=== PATIENT | female | born 1965 | race Two or more races ===

== ENCOUNTER 2017-03-31 12:54 | Outpatient (CLI) | payer OTHER | END 2017-03-31 13:05 | disposition home or self-care (01) | LOC: SONOGRAMA 12:54 → MAMO-SONO 13:15 | DX: R31.9 Hematuria, unspecified (principal) ==

== ENCOUNTER 2017-04-06 11:15 | Outpatient (CLI) | payer OTHER | END 2017-04-06 12:00 | disposition home or self-care (01) | LOC: NUCLEAR 11:15 | DX: M81.0 Age-related osteoporosis without current pathological fracture (principal) ==

== ENCOUNTER → 2017-04-29 | Outpatient (CLI) | payer OTHER | END | disposition home or self-care (01) | LOC: NUCLEAR 04-22 07:00 | DX: R07.89 Other chest pain (principal) | CPT/HCPCS: 78452; 93017; A9500 ==

== ENCOUNTER 2020-04-29 07:45 | Outpatient (CLI) | payer OTHER | END 2020-04-29 07:50 | disposition home or self-care (01) | LOC: SONOGRAMA 07:45 → MAMO-SONO 05-01 09:00 | PROVIDERS: ATTEND Obstetrics & Gynecology Gynecologic Oncology | DX: Q51.818 Other congenital malformations of uterus (principal); N95.1 Menopausal and female climacteric states ==

== ENCOUNTER 2021-12-15 08:41 | Outpatient (CLI) | payer OTHER | END 2021-12-15 08:43 | disposition home or self-care (01) | LOC: SONOGRAMA 08:41 | PROVIDERS: ATTEND Obstetrics & Gynecology Gynecologic Oncology | DX: N95.1 Menopausal and female climacteric states (principal) ==

== ENCOUNTER 2022-12-03 14:14 | Outpatient (CLI) | payer OTHER | END 2022-12-03 14:24 | disposition home or self-care (01) | LOC: SONOGRAMA 14:14 | PROVIDERS: ATTEND Obstetrics & Gynecology Gynecologic Oncology | DX: N83.291 Other ovarian cyst, right side (principal) ==

== ENCOUNTER 2022-12-17 13:50 | Outpatient (CLI) | payer OTHER | END 2022-12-17 13:51 | disposition home or self-care (01) | LOC: NUCLEAR 13:50 | PROVIDERS: ATTEND Obstetrics & Gynecology Gynecologic Oncology | DX: M81.0 Age-related osteoporosis without current pathological fracture (principal) ==

== ENCOUNTER 2024-06-21 09:19 | Outpatient (CLI) | payer OTHER | END 2024-06-21 09:25 | disposition home or self-care (01) | LOC: SONOGRAMA 09:19 | PROVIDERS: ATTEND Specialist | DX: K85.90 Acute pancreatitis without necrosis or infection, unspecified (principal) ==

== ENCOUNTER 2024-07-12 07:16 | Outpatient (CLI) | payer OTHER | END 2024-07-12 07:26 | disposition home or self-care (01) | LOC: TOM 07:16 | PROVIDERS: ATTEND Internal Medicine Gastroenterology | DX: R10.10 Upper abdominal pain, unspecified (principal); R11.0 Nausea; R10.13 Epigastric pain ==

== ENCOUNTER 2025-02-05 12:55 | Outpatient (CLI) | payer OTHER | END 2025-02-05 13:05 | disposition home or self-care (01) | LOC: RAD 12:55 | PROVIDERS: ATTEND Orthopaedic Surgery | DX: M25.511 Pain in right shoulder (principal) ==